=== PATIENT | male | born 1935 | race Caucasian/White ===

== ENCOUNTER → 2024-03-02 15:11 | Outpatient (REF) | payer MEDICARE, SELFPAY | LOC: MRI 3T 15:11 | PROVIDERS: ATTENDING PHYSICIAN Internal Medicine Gastroenterology; PRIMARYCARE PHYSICIAN Family Medicine | DX: K86.2 Cyst of pancreas (principal) | CPT/HCPCS: 74183; A9575 ==

== ENCOUNTER 2025-02-14 08:32 | Emergency (ER) | payer MEDICARE, SELFPAY ==
[2025-02-14 08:39] VITALS: BP 135/63
--- NOTE | 2025-02-14 09:13 | ED.GENMED ---
History of Present Illness
General
Chief Complaint: Musculo-Skeletal Complaint
Source: patient
Time Seen by Provider: 02/14/25 08:45
History of Present Illness
History of Present Illness:
89-year-old male presents to the emergency room complaining of neck pain. 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 He will have pain from time to time depending upon his activity level which typically last a day or so
and goes away. However patient developed pain in his neck few days ago which remains significant. Is worse when he moves. He has difficulty laying down or sitting up because of neck pain. No numbness or tingling in his extremities. No weakness.
He denies any bowel or bladder dysfunction.
Past History
Past History
ED Past Medical History: HTN and Other (Kidney stones)
ED Past Surgical History: Urological
Social History
Tobacco: Non-smoker
Phy Exam
Physical Exam
Physical Exam:
General: Awake, Alert, Oriented X3. No acute distress. Patient appears uncomfortable with minimal movement of the neck when he changes position
Vitals: unremarkable
Head: Atraumatic
Eyes: Pupils equal, EOMI
Neck: Paraspinal tenderness bilaterally.
Throat: Airway intact, no exudates
Neck: Trachea midline
Lungs: Clear and equal b/l
Heart: Regular rate, no murmurs
Abd: Soft, Nontender, No pulsatile mass
Neuro: No focal weakness, numbness
Skin: Warm, dry, no rash
Extremities: pulses equal b/l, no edema
Course
Orders/Labs/Results
Orders:
Orders
02/14/25 09:12
HYDROmorphone [Dilaudid] 0.5 mg IV NOW STA
Lidocaine [Lidocaine 4% Patch] 1 patch TOPICAL NOW STA
Apply Lidocaine patch(s) to:: neck
Prednisone [Deltasone] 50 mg PO NOW STA
CR Cervical Spine 4 Or 5 Vw Urgent
Comment:
Reason For Exam: neck pain
Vital Signs
Initial and Last Documented VS:
Initial Vital Signs
Temp Pulse Resp BP Pulse Ox
98 F 77 16 135/63 98
02/14/25 08:39 02/14/25 08:39 02/14/25 08:39 02/14/25 08:39 02/14/25 08:39
Last Documented Vital Signs
Temp Pulse Resp BP Pulse Ox
98 F 75 16 141/74 98
02/14/25 08:39 02/14/25 10:56 02/14/25 10:56 02/14/25 10:56 02/14/25 10:56
MDM/Problems Addressed
Differential Diagnosis Includes:
Degenerative disease cervical spine, radiculopathy, muscle spasm
MDM/Problems Addressed:
Chest x-ray showed definitive changes but no acute fracture. He feels better after analgesia here. Discharged with instructions to use Voltaren cream, lidocaine patch, hydrocodone as a last resort. Follow-up with pain management.
*Radiology
Radiology exam reviewed: radiology read reviewed
*Pulse Oximetry
SaO2: 98
Oxygen Mode of Delivery: Room air
Patient hypoxic: no
*Critical Care Note
Total Time (30-74mins, 75-104mins- exclusive of procedures): Not Applicable
ED Attending Note
-
Portions of this chart may have been created with voice recognition software.� Occasional wrong word or��sound alike� substitutions may have occurred due to the inherent limitations of voice recognition software.
Discharge Plan
Departure
Patient Disposition: Home (Routine Discharge)
Date of Disposition: 02/14/25
Time of Disposition: 11:09
Patient with high blood pressure during this ER visit?: Yes
Condition: Good
Discharge Problem:
Neck pain, acute, Cervical arthritis
Instructions: Neck pain - ED (DC)
Prescriptions:
New
prednisone 20 mg tablet
40 mg PO DAILY Qty: 8 0RF
hydrocodone-acetaminophen 5-325 mg tablet
1 tab PO Q6H PRN (Reason: Pain) Qty: 20 0RF
No Action
levothyroxine 88 mcg Tablet
88 mcg PO DAILY
lisinopril 2.5 mg Tablet
2.5 mg PO DAILY
aspirin 81 mg Capsule
81 mg PO DAILY
Referrals:
Jeison Miller MD [Active, Anesthesiology]
Noemí Ferguson MD [Family Provider, Family Practice]
Activity Restrictions/Additional Instructions:
Your workup here shows that you have significant degenerative changes of the cervical spine which is the likely cause of your neck pain. Essentially this is progressive arthritis. We will send a prescription for a few days of prednisone to help
reduce inflammation as well as a prescription for hydrocodone for severe pain. Before taking the hydrocodone you should apply Voltaren cream to your neck, use lidocaine patches as well as Tylenol every 6 hours. I have given you contact information
for Dr. Miller who is a industrial spraypainter. You should make an appointment with him as well as following up with your primary care provider.
Interventions
Interventions:
*Risk Screen - Suicide Last Done: 02/14/25 08:39
*General Assessment Last Done: 02/14/25 09:25
*Neglect/Abuse Screening Last Done: 02/14/25 08:39
*ED- Fall Risk Assessment Last Done: 02/14/25 09:25
*ED COVID-19 Vaccine History Last Done: 02/14/25 08:56
*ED Influenza Vaccine History Last Done: 02/14/25 08:56
*Nursing Disposition Last Done: 02/14/25 11:28
ED-Musculoskeletal Assessment Last Done: 02/14/25 08:46
Discharge Date and Time
Discharge Date/Time: 02/14/25 11:29
Print Language: ITALIAN
[2025-02-14] MEDS: DELTASONE 50 MG PO (09:19)
[2025-02-14] MEDS: DILAUDID 0.5 MG IV (09:19)
[2025-02-14] MEDS: LIDOCAINE 4% PATCH 1 PATCH TOPICAL (09:19)
[2025-02-14 10:56] VITALS: BP 141/74
== END 2025-02-14 11:29 | disposition home or self-care (01) ==
LOC: EMR 08:32
PROVIDERS: EMERGENCY PHYSICIAN Emergency Medicine; FAMILY PHYSICIAN Family Medicine
DX: M47.812 Spondylosis without myelopathy or radiculopathy, cervical region (principal); I10 Essential (primary) hypertension
CPT/HCPCS: 96374; 99284; 72050

== ENCOUNTER → 2025-03-27 16:59 | Outpatient (REF) | payer MEDICARE, SELFPAY | LOC: RCS 16:59 | PROVIDERS: ATTENDING PHYSICIAN Family Medicine | DX: R01.1 Cardiac murmur, unspecified (principal) | CPT/HCPCS: 93306 ==